=== PATIENT | female | born 1990 | race Caucasian/White ===

== ENCOUNTER 2016-07-26 18:50 | Emergency (ER) | payer OTHER ==
[~2016-07-26] VITALS: Ht 172.7 cm; Wt 120.5 kg
[2016-07-26 18:56] VITALS: TEMP 36.9; Ht 172.7 cm; Wt 120.5 kg
--- NOTE | 2016-07-26 19:28 | DIAGNOSTIC IMAGING REPORT ---
LEFT FOOT MIN 3 VIEWS ROUTINE CLINICAL HISTORY: L great toe pain; desk fell on toe trauma. Pain. COMPARISON: None. DISCUSSION: The bones and joint spaces appear intact. There is no evidence of fracture, dislocation or bony disease. There is no evidence for soft tissue swelling. IMPRESSION: Negative study. Electronically signed by: Ceasar Sanchez M.D. 07/26/2016 7:27 PM Dictated Date/Time: 07/26/2016 7:26 PM
[2016-07-26] MEDS ORDERED: LIDOCAINE 2% JELLY 5 ML TUBE EXT ONE (19:36)
[2016-07-26] MEDS ORDERED: IBUPROFEN 600 MG TAB PO STA (20:18)
[2016-07-26 20:28] VITALS: BP 144/65; PULSE 84; O2SAT 99
--- NOTE | 2016-07-28 00:23 | EMERGENCY ROOM VISIT NOTE ---
ED Visit Note First contact with patient: 18:58 Chief Complaint: Left foot pain. History of Present Illness: Ms. Lundberg is a 25-year-old white female who ambulates into the ED accompanied by her boyfriend complaining of left great toe pain. She reports less than 1 hour before she arrived in the emergency department she was helping her boyfriend carry a desk. The desk was accidentally dropped and landed on her left great toe. Since that time she has been having severe pain in the left great toe. Currently she describes her pain as a throbbing sensation. Primarily located over the interphalangeal joint and over the distal phalanx. She rates her discomfort 8/10. Her pain is nonradiating. Her pain worsens with palpation and all movement of the interphalangeal joint. She has not identified any alleviating factors related to the pain. She has not taken any medications for pain prior to arrival at the hospital. Associated with her pain she does report she has noticed bleeding at the level of the proximal cuticle and has noted a small amount of blood under the toenail. She denies any other foot pain , any of the toe pain, toe weakness/numbness/tingling. Additionally she denies any previous significant injuries or surgeries to the great toe. Review of Systems: As noted above in history of present illness. Past Medical History: Unspecified kidney disease. Current Medications: Patient denies. Allergies to Medications: Clindamycin, penicillin. Social History: Patient is currently employed; she feels safe in her home environment; she denies tobacco and alcohol use. Physical Examination: Vital Signs: Date Time Temp Pulse Resp B/P Pulse Ox O2 Delivery O2 Flow Rate FiO2 07/26/16 20:28 84 20 144/65 99 07/26/16 18:56 36.9 77 20 141/82 94 Room Air GENERAL: 25-year-old female in moderate distress due to pain, nontoxic-appearing , afebrile and hemodynamically stable. Patient is anxious and tearful. NEUROLOGICAL: Awake, alert and oriented to person, place and time. Answering questions appropriately and following commands. SKIN: Warm, dry and pink. Left Great Toe: Patient has a superficial laceration and small flap of the cuticle. There is no active bleeding. Additionally there was a small, diffuse amount of blood under the toenail. LEFT FOOT: Please note soft tissue injuries above under SKIN. No gross bony deformity. Moderate to severe tenderness throughout the great toe. Limited exam due to pain. She was able to wiggle the toe at the interphalangeal joint. Brisk capillary refill. She is able to distinguish light sensations through all dermatomes of the toe. No other injuries throughout the foot were noted. ED Course: Patient is assessed as noted above. Patient was given ice and 600 mg of ibuprofen by mouth. Additionally 2% lidocaine gel was placed over the cuticle injury for anesthesia. Left Foot X-Rays: Was read by myself and the radiologist showing no acute fractures or dislocations. No evidence of foreign bodies or soft tissue swelling. I did clean patient superficial wound and small flap superficial laceration with Betadine and sterile water. A clean bacitracin dressing was applied. Patient was placed in a postop shoe and offered nonweight bearing crutches and she refused crutches. Patient was educated about tonight's findings and instructed on her treatment plan; she verbalizes understanding and agreement with this plan. Clinical Impression: Left great toe injury. Small superficial cuticle laceration. Small subungual hematoma. Disposition: Patient discharged home in stable condition accompanied by her boyfriend; prior to departure she was reassessed and subjectively reported she was feeling better and rated her discomfort 6/10. Plan: Comfort measures, wound care and signs of infection were discussed with the patient. Patient was encouraged to follow-up with her PCP or return to the ED for any signs of infection. Patient was encouraged return to the ED for worsening/uncontrolled pain or any new/concerning symptoms.
== END 2016-07-26 20:28 | disposition home or self-care (01) ==
LOC: C.EDB 18:52 → C.EDD 20:28
DX: S90.932A Unspecified superficial injury of left great toe, initial encounter (principal); S91.112A Laceration without foreign body of left great toe without damage to nail, initial encounter; S90.112A Contusion of left great toe without damage to nail, initial encounter; W22.8XXA Striking against or struck by other objects, initial encounter; N18.9 Chronic kidney disease, unspecified